=== PATIENT | female | born 1980 | race Caucasian/White ===

== ENCOUNTER 2018-10-04 09:44 | Emergency (ER) | payer MEDICAID ==
[~2018-10-04] VITALS: Ht 142.2 cm; Wt 72.6 kg
[2018-10-04 09:45] VITALS: Ht 142.2 cm; Wt 72.6 kg
[2018-10-04 10:11] LABS: CALCIUM 9.8 mg/dL (8.5-10.1); CARBON DIOXIDE 28.6 mmol/L (21-32); CHLORIDE SERUM 104 mmol/L (98-107); CREATININE SERUM 0.9 mg/dL (0.6-1.0); GFR1 > 60 mL/min; GLUCOSE SERUM 116 mg/dL (74-106); POTASSIUM SERUM 3.8 mmol/L (3.5-5.1); SODIUM SERUM 142 mmol/L (136-145)
[2018-10-04 10:18] LABS: ALBUMIN 3.9 g/dL (3.4-5.0); ALKALINE PHOSPHATASE 45 U/L (46-116); ALT/SGPT 19 U/L (14-59); AST/SGOT 10 U/L (15-37); BILIRUBIN TOTAL 0.62 mg/dL (0.20-1.00); TOTAL PROTEIN, SERUM 7.7 g/dL (6.4-8.2)
[2018-10-04 11:53] VITALS: BP 110/78
== END 2018-10-04 11:53 | disposition home or self-care (01) ==
LOC: ED 09:44
PROVIDERS: Emergency Medicine
DX: E86.0 Dehydration (principal); B86 Scabies; R55 Syncope and collapse; R11.2 Nausea with vomiting, unspecified; Z98.890 Other specified postprocedural states
CPT/HCPCS: J2405; J7030

== ENCOUNTER 2019-04-29 15:19 | Emergency (ER) | payer SELFPAY ==
[~2019-04-29] VITALS: Ht 142.2 cm; Wt 68.0 kg
[2019-04-29 15:45] VITALS: BP 135/77; Ht 142.2 cm; Wt 68.0 kg
== END 2019-04-29 17:12 | disposition left against medical advice (07) ==
LOC: ED 15:19
DX: Z53.21 Procedure and treatment not carried out due to patient leaving prior to being seen by health care provider (principal)
CPT/HCPCS: 87804

== ENCOUNTER 2019-05-26 15:02 | Emergency (ER) | payer SELFPAY ==
[~2019-05-26] VITALS: Ht 157.5 cm; Wt 67.6 kg
[2019-05-26 15:33] VITALS: Ht 157.5 cm; Wt 67.6 kg
[2019-05-26 17:48] VITALS: BP 110/71
== END 2019-05-26 17:48 | disposition home or self-care (01) ==
LOC: ED 15:02
DX: S93.602A Unspecified sprain of left foot, initial encounter (principal); W22.8XXA Striking against or struck by other objects, initial encounter; Y93.89 Activity, other specified; Y92.89 Other specified places as the place of occurrence of the external cause; Y99.8 Other external cause status

== ENCOUNTER 2020-05-19 18:31 | Emergency (ER) | payer SELFPAY ==
[~2020-05-19] VITALS: Ht 149.9 cm; Wt 68.0 kg
[2020-05-19 18:46] VITALS: BP 122/71
== END 2020-05-19 20:05 | disposition home or self-care (01) ==
LOC: ED 18:31
DX: R21 Rash and other nonspecific skin eruption (principal); Z98.890 Other specified postprocedural states
CPT/HCPCS: J1200